=== PATIENT | male | born 1995 | race African-American/Black ===

== ENCOUNTER 2016-11-23 16:19 | Emergency (ER) | payer OTHER ==
[~2016-11-23] VITALS: Ht 185.4 cm; Wt 83.9 kg
[~2016-11-23 16:19] MED LIST: ALBU17AE26 IH
[2016-11-23 16:25] VITALS: BP_SYST 144
[2016-11-23] MEDS ORDERED: IBUPROFEN 800 MG TABLET PO ONE (16:45)
[2016-11-23] MEDS ORDERED: LIDOCAINE 1% 10 MG/ML, 20 ML MDV IJ ONE (16:45)
[2016-11-23] MEDS ORDERED: BACITRACIN 1 GM OINT TP ONE (16:45)
[2016-11-23] MEDS ORDERED: DIPH-TET-PERTUS Vaccine 0.5 ML VIAL (ADACEL) IM ONE (16:45)
[2016-11-23] MEDS ORDERED: HYDROcodone/ACETAMIN 7.5-325 MG TAB PO ONE (18:15)
[2016-11-23 19:21] VITALS: BP_SYST 132
== END 2016-11-23 19:21 | disposition home or self-care (01) ==
LOC: SED 16:19
DX: S61.011A Laceration without foreign body of right thumb without damage to nail, initial encounter (principal); S61.218A Laceration without foreign body of other finger without damage to nail, initial encounter; X58.XXXA Exposure to other specified factors, initial encounter; Y93.89 Activity, other specified; Y92.098 Other place in other non-institutional residence as the place of occurrence of the external cause; Y99.8 Other external cause status
CPT/HCPCS: 12002; 73130; 90471; 90715; 99284; J2001

== ENCOUNTER 2017-11-21 11:41 | Emergency (ER) | payer MEDICAID, OTHER ==
[~2017-11-21] VITALS: Ht 182.9 cm; Wt 86.2 kg
[2017-11-21 11:41] VITALS: BP_SYST 147
[2017-11-21 13:28] VITALS: BP_SYST 142
== END 2017-11-21 13:28 | disposition home or self-care (01) ==
LOC: SED 11:41
DX: J02.8 Acute pharyngitis due to other specified organisms (principal); B97.89 Other viral agents as the cause of diseases classified elsewhere; J45.909 Unspecified asthma, uncomplicated
CPT/HCPCS: 36415; 86403; 87081; 99284